=== PATIENT | male | born 1940 ===

== ENCOUNTER 2020-07-30 17:21 | Emergency (ER) | payer MEDICARE ==
[~2020-07-30] VITALS: Ht 162.6 cm; Wt 79.5 kg
== END 2020-07-30 18:10 | disposition home or self-care (01) ==
LOC: ER 17:22
DX: J06.9 Acute upper respiratory infection, unspecified (principal); R06.02 Shortness of breath; R09.89 Other specified symptoms and signs involving the circulatory and respiratory systems; Z20.828 Contact with and (suspected) exposure to other viral communicable diseases
CPT/HCPCS: 36415; 87635; 99283